=== PATIENT | female | born 1995 | race Caucasian/White ===

== ENCOUNTER 2021-08-08 16:10 | Emergency (ER) | payer OTHER ==
[~2021-08-08] VITALS: Ht 170.2 cm; Wt 77.1 kg
[2021-08-08 16:12] VITALS: BP 133/77
[2021-08-08] MEDS ORDERED: AUGMENTIN 875-1 EACH PO (17:36)
[2021-08-08] MEDS ORDERED: NORCO5 PO (17:36)
== END 2021-08-08 17:37 | disposition home or self-care (01) ==
LOC: ER 16:10
DX: S61.452A Open bite of left hand, initial encounter (principal); W54.0XXA Bitten by dog, initial encounter; Y93.89 Activity, other specified; Y92.89 Other specified places as the place of occurrence of the external cause; Y99.8 Other external cause status